=== PATIENT | male | born 1980 | race Caucasian/White ===

== ENCOUNTER 2018-07-05 10:09 | Observation (INO) | payer BC, OTHER ==
[2018-07-05] MEDS ORDERED: Ondansetron 4 MG/2 ML SDV ONE ×2 (10:38→10:48)
[2018-07-05] MEDS ORDERED: Ondansetron 4 MG/2 ML SDV IVPUSH ONE (10:44)
[2018-07-05] MEDS ORDERED: Sodium Chloride 0.9% 1,000 ML IV SCH (10:45)
--- NOTE | 2018-07-05 10:50 | EDM.PDOC ---
ED HPI GENERAL MEDICAL PROBLEM - General Stated Complaint: DIABETIC Time Seen by Provider: 07/05/18 10:25 Source of Information: Reports: Patient History Limitations: Reports: No Limitations - History of Present Illness INITIAL COMMENTS - FREE TEXT/NARRATIVE: Pt is type 1 diabetic, from around [facility], presents to the emergency room with c/o feeling tiered and sick. Apparently patient claims he started to vomiting after his last night supper, had several bouts of vomitus which contained fluids and undigested food particle. His last episode of vomitus was in the emergency room, clear fluid. Pt is wretching in the emergency room. Later on last night has had watery loose stools.No blood or mucus. His last episode of loose stools was prior to arrival. C/o weakness or sweaty. No fever or chills. No cough. No abdominal distension. Pt's morning blood sugar was 300, but in the emergency room his Blood sugar is 185mgs. No other complaints. Onset Date: 07/04/18 Onset Time: 20:00 Duration: Getting Worse, Intermittent Location: Reports: Abdomen Quality: Reports: Ache Severity: Moderate Improves with: Reports: None Worsens with: Reports: None Associated Symptoms: Reports: Loss of Appetite, Nausea/Vomiting, Weakness. Denies: Confusion, Chest Pain, Cough, Diaphoresis, Fever/Chills, Headaches, Rash , Seizure, Shortness of Breath, Syncope - Related Data Home Meds: Home Meds Insulin Aspart [NovoLOG] 5 - 8 units SQ ASDIRECTED 07/05/18 [History] Insulin Detemir [Levemir] 13 units SQ BID 07/05/18 [History] ED ROS GENERAL - Review of Systems Review Of Systems: See Below Constitutional: Denies: Fever, Chills, Malaise, Weakness HEENT: Denies: Rhinitis, Throat Pain, Throat Swelling Respiratory: Denies: Shortness of Breath, Cough, Sputum Cardiovascular: Denies: Chest Pain, Lightheadedness GI/Abdominal: Reports: Abdominal Pain, Diarrhea, Flatus, Nausea, Vomiting. Denies: Distension, Hematochezia, Melena, Mucous in Stool : Denies: Dysuria, Frequency Musculoskeletal: Denies: Joint Pain, Joint Swelling Skin: Denies: Bruising, Pruritis, Rash ED EXAM, GENERAL - Physical Exam Exam: See Below Exam Limited By: No Limitations General Appearance: Alert, WD/WN, No Apparent Distress, Other (Ill appearance. ALso tongue is dry, appears dehydrated) Eye Exam: Bilateral Eye: Abnormal EOM, Abnormal Pupil Ears: Normal External Exam, Normal Canal, Hearing Grossly Normal, Normal TMs Ear Exam: Bilateral Ear: Auricle Normal, Canal Normal, TM normal Nose: Normal Inspection, Normal Mucosa, No Blood Throat/Mouth: Normal Inspection, Normal Gums, Normal Voice, No Airway Compromise , Other (Tongue is dry oral mucosa is dry) Neck: Normal Inspection, Supple, Non-Tender, Full Range of Motion Respiratory/Chest: No Respiratory Distress, Lungs Clear, Normal Breath Sounds, No Accessory Muscle Use, Chest Non-Tender Cardiovascular: Normal Peripheral Pulses, Regular Rate, Rhythm, No Edema, No Gallop, No JVD, No Murmur, No Rub GI/Abdominal: Soft, No Distention, Tender (superficial tenderness all over. Mild epigastric tenderness.), Abnormal Bowel Sounds (hyperactive BS) Extremities: Normal Inspection, Normal Range of Motion, Non-Tender, Normal Capillary Refill, No Pedal Edema Neurological: Alert, Oriented, CN II-XII Intact Psychiatric: Normal Affect, Normal Mood Skin Exam: Warm, Intact Course - Vital Signs Text/Narrative:: Pt presents with nausea, vomiting, diarrhea since last night. Pt's vitals are stable. His clinical exam shows dry mucus membranes with hyperactive bowel sounds. HE does appear dehydrated. He did receive Iv Zofran 4mg and 1 litre normal saline bolus in the emergency room. His CBC shows mild elevation of white count at 14K. His CMP appears normal. His Lipase is negative. It does appear like acute viral gastroenteritis with with dehydration, from sudden loss of fluids. He has not given urine sample due to dehydration, will get one done once he urinates. I have discussed labs with patient, reassured that he has acute Gastroenteritis. Should resolve in next 24 hrs. Will keep in on Iv NS with KCL 20 meq at 150cc/hr. Control nasuea with zofran. Also as he has been empty stomach and has vague epigastric discomfort, will have him on protonix 40mg IV. Plan is to admit patient for observation. repeat CBC and BMP in am and followup . - Orders/Labs/Meds Orders: Active Orders 24 hr Category Date Time Status Sodium Chloride 0.9% [Normal Saline] 1,000 ml Med 07/05/18 10:45 Ordered IV ASDIRECTED Medication Orders Sodium Chloride (Normal Saline) 1,000 mls @ 999 mls/hr IV ASDIRECTED [facility] Last Admin: 07/05/18 10:49 Dose: 999 mls/hr Labs: Laboratory Tests 07/05/18 07/05/18 Range/Units 10:30 10:30 WBC 14.3 H (4.0-11.0) K/uL RBC 5.28 (4.50-6.50) M/uL Hgb 15.8 (13.0-18.0) g/dL Hct 45.2 (40.0-54.0) % MCV 86 (76-96) fL MCH 29.9 (27.0-32.0) pg MCHC 35.0 (31.0-35.0) g/dL RDW 12.9 (11.0-16.0) % Plt Count 248 (150-400) K/uL MPV 9.5 (6.0-10.0) fL Neut % (Auto) 89.2 H (45.0-70.0) % Lymph % (Auto) 7.0 L (20.0-40.0) % [place] % (Auto) 3.7 (3.0-10.0) % Eos % (Auto) 0.0 L (1.0-5.0) % Baso % (Auto) 0.1 (0.0-0.5) % Neut # (Auto) 12.75 H (2.00-7.50) K/uL Lymph # (Auto) 1.00 L (1.50-4.00) K/uL [place] # (Auto) 0.53 (0.20-0.80) K/uL Eos # (Auto) 0.00 L (0.04-0.40) K/uL Baso # (Auto) 0.02 (0.02-0.10) K/uL Sodium 144 (136-145) mmol/L Potassium 4.0 (3.5-5.1) mmol/L Chloride 103 (98-107) mmol/L Carbon Dioxide 26.4 (21.0-32.0) mmol/L Anion Gap 18.6 H (5.0-15.0) mmol/L BUN 24 (8-26) mg/dL Creatinine 0.80 (0.70-1.30) mg/dL Est Cr Clr Drug Dosing TNP Estimated GFR (MDRD) > 60 (>60) MLS/MIN BUN/Creatinine Ratio 30.0 H (6-25) Glucose 195 H (74-100) mg/dL Calcium 9.6 (8.5-10.1) mg/dL Total Bilirubin 0.7 (0.0-1.0) mg/dL AST 31 (15-37) U/L ALT 52 (12-78) U/L Alkaline Phosphatase 90 (46-116) U/L Total Protein 8.1 (6.4-8.2) g/dL Albumin 4.6 (3.4-5.0) g/dL Globulin 3.5 (2.2-4.2) g/dL Albumin/Globulin Ratio 1.3 (0.8-2.0) Lipase 59 L (73-393) U/L Meds: Medications Generic Name Dose Route Start Last Admin Trade Name Freq PRN Reason Stop Dose Admin Sodium Chloride 1,000 mls @ 999 mls/hr 07/05/18 10:45 07/05/18 10:49 Normal Saline IV 999 mls/hr ASDIRECTED [facility] Administration Discontinued Medications Generic Name Dose Route Start Last Admin Trade Name Freq PRN Reason Stop Dose Admin Ondansetron HCl Confirm 07/05/18 10:48 Zofran Administered 07/05/18 10:49 Dose 4 mg .ROUTE .STK-MED ONE Ondansetron HCl 4 mg 07/05/18 10:44 07/05/18 10:44 Zofran IVPUSH 07/05/18 10:45 4 mg ONETIME ONE Administration Departure - Departure Time of Disposition: 11:30 Disposition: Refer to Observation Condition: Fair Clinical Impression: Acute gastroenteritis - Discharge Information *PRESCRIPTION DRUG MONITORING PROGRAM REVIEWED*: Not Applicable *COPY OF PRESCRIPTION DRUG MONITORING REPORT IN PATIENT ZACK: Not Applicable Referrals: PCP,None [Primary Care Provider] - - Problem List & Annotations (1) Acute gastroenteritis SNOMED Code(s): 26942919 Code(s): K52.9 - NONINFECTIVE GASTROENTERITIS AND COLITIS, UNSPECIFIED Status: Acute Current Visit: Yes - Problem List Review Problem List Initiated/Reviewed/Updated: Yes - My Orders Last 24 Hours: My Active Orders 07/05/18 10:45 Sodium Chloride 0.9% [Normal Saline] 1,000 ml IV ASDIRECTED - Assessment/Plan Last 24 Hours: My Active Orders 07/05/18 10:45 Sodium Chloride 0.9% [Normal Saline] 1,000 ml IV ASDIRECTED Assessment:: Acute gastroenteritis with dehydration Plan: Pt presents with nausea, vomiting, diarrhea since last night. Pt's vitals are stable. His clinical exam shows dry mucus membranes with hyperactive bowel sounds. HE does appear dehydrated. He did receive Iv Zofran 4mg and 1 litre normal saline bolus in the emergency room. His CBC shows mild elevation of white count at 14K. His CMP appears normal. His Lipase is negative. It does appear like acute viral gastroenteritis with with dehydration, from sudden loss of fluids. He has not given urine sample due to dehydration, will get one done once he urinates. I have discussed labs with patient, reassured that he has acute Gastroenteritis. Should resolve in next 24 hrs. Will keep in on Iv NS with KCL 20 meq at 150cc/hr. Control nasuea with zofran. Also as he has been empty stomach and has vague epigastric discomfort, will have him on protonix 40mg IV. Plan is to admit patient for observation. repeat CBC and BMP in am and followup .
[2018-07-05] MEDS ORDERED: Sodium Chloride 0.9% 10 ML Syringe FLUSH PRN (11:24)
[2018-07-05] MEDS ORDERED: Pantoprazole 40 MG in Sodium Chloride 0.9% 100 ML IV SCH (11:30)
[2018-07-05] MEDS ORDERED: NS + KCl 20mEq/L 1,000 ML ONE (11:50)
[2018-07-05] MEDS: NS + KCl 20mEq/L 1,000 ML IV SCH ×2 (11:55→20:24)
[2018-07-05] MEDS: Ondansetron 4 MG/2 ML SDV IVPUSH SCH ×2 (13:29→20:20)
[2018-07-05] MEDS ORDERED: Metoclopramide 10 MG/2 ML SDV ONE (14:56)
[2018-07-05] MEDS ORDERED: Metoclopramide 10 MG/2 ML SDV IV PRN (14:57)
[2018-07-06] MEDS: Ondansetron 4 MG/2 ML SDV IVPUSH SCH ×3 (03:19→20:15)
[2018-07-06] MEDS: NS + KCl 20mEq/L 1,000 ML IV SCH (03:19)
[2018-07-06] MEDS ORDERED: cefTRIAXone 1 GM Vial ONE (10:00)
[2018-07-06] MEDS ORDERED: Pantoprazole 40 MG Vial ONE (10:00)
[2018-07-06] MEDS ORDERED: Ondansetron 4 MG/2 ML SDV ONE (10:00)
[2018-07-06] MEDS ORDERED: Insulin Detemir 100 Units/ML 3 ML Pen ONE (10:00)
[2018-07-06] MEDS ORDERED: Sodium Chloride 0.9% 1,000 ML IV SCH (10:15)
[2018-07-06] MEDS ORDERED: cefTRIAXone 1 GM in Sodium Chloride 0.9% 50 ML IV ONE (11:00)
--- NOTE | 2018-07-06 11:16 | PCM.PN ---
- General Info Date of Service: 07/06/18 Subjective Update: Pt claims he feels better, but tired. Has not had any episodes of vomiting over night, but has had one small loose stool around 2 am. No abdominal pain. No nausea or vomiting. No fever or chills.Was kept NPO over night, Pt claims he has been feeling hungry and would like to eat some food. No fever of chills. Functional Status: Reports: Pain Controlled, Tolerating Diet, Ambulating, Urinating - Review of Systems General: Reports: Weakness, Fatigue. Denies: Fever HEENT: Denies: Headaches, Sinus Congestion, Rhinitis Pulmonary: Denies: Shortness of Breath, Pleuritic Chest Pain, Cough, Sputum, Hemoptysis Cardiovascular: Denies: Chest Pain, Lightheadedness Gastrointestinal: Reports: Diarrhea, Flatus. Denies: Abdominal Pain, Nausea, Vomiting Genitourinary: Denies: Dysuria, Frequency Musculoskeletal: Denies: Joint Pain, Joint Swelling Skin: Denies: Bruising, Pruritis, Rash Neurological: Denies: Confusion, Dizziness, Headache, Numbness, Tingling Psychiatric: Denies: Confusion - Patient Data Vitals - Most Recent: Last Vital Signs Temp 98.4 F 07/06/18 07:00 Pulse 127 H 07/06/18 07:00 Resp 17 07/06/18 07:00 BP 127/67 07/06/18 07:00 Pulse Ox 96 07/06/18 07:00 Weight - Most Recent: 68.492 kg I&O - Last 24 Hours: Intake & Output 07/05/18 07/06/18 07/06/18 22:59 06:59 14:59 Intake Total 2681 Balance 2681 Lab Results Last 24 Hours: Laboratory Results - last 24 hr 07/05/18 07/05/18 07/05/18 Range/Units 17:10 17:35 19:19 WBC (4.0-11.0) K/uL RBC (4.50-6.50) M/uL Hgb (13.0-18.0) g/dL Hct (40.0-54.0) % MCV (76-96) fL MCH (27.0-32.0) pg MCHC (31.0-35.0) g/dL RDW (11.0-16.0) % Plt Count (150-400) K/uL MPV (6.0-10.0) fL Sodium (136-145) mmol/L Potassium (3.5-5.1) mmol/L Chloride (98-107) mmol/L Carbon Dioxide (21.0-32.0) mmol/L Anion Gap (5.0-15.0) mmol/L BUN (8-26) mg/dL Creatinine (0.70-1.30) mg/dL Est Cr Clr Drug Dosing mL/min Estimated GFR (MDRD) (>60) MLS/MIN BUN/Creatinine Ratio (6-25) Glucose (74-100) mg/dL POC Glucose 210 H 212 H (74-110) mg/dL Lactic Acid (0.90-1.70) mmol/L Calcium (8.5-10.1) mg/dL Urine Color Yellow Urine Appearance Clear (CLEAR) Urine pH 7.0 (5.0-8.0) Ur Specific [place] 1.020 (1.003-1.030) Urine Protein Negative (NEGATIVE) mg/dL Urine Glucose (UA) 500 H (NEGATIVE) mg/dL Urine Ketones 80 H (NEGATIVE) mg/dL Urine Occult Blood Negative (NEGATIVE) Urine Nitrite Negative (NEGATIVE) Urine Bilirubin Negative (NEGATIVE) Urine Urobilinogen 0.2 (0.2-1.0) E.U./dL Ur Leukocyte Esterase Negative (NEGATIVE) Urine RBC Not seen /HPF Urine WBC 0-5 H /HPF Ur Squamous Epith Cells Few /HPF 07/06/18 07/06/18 07/06/18 Range/Units 09:20 09:20 10:06 WBC 24.3 H* D (4.0-11.0) K/uL RBC 4.93 (4.50-6.50) M/uL Hgb 14.6 (13.0-18.0) g/dL Hct 44.6 (40.0-54.0) % MCV 91 (76-96) fL MCH 29.6 (27.0-32.0) pg MCHC 32.7 (31.0-35.0) g/dL RDW 14.2 (11.0-16.0) % Plt Count 261 (150-400) K/uL MPV 9.5 (6.0-10.0) fL Sodium 144 (136-145) mmol/L Potassium 5.2 H D (3.5-5.1) mmol/L Chloride 105 (98-107) mmol/L Carbon Dioxide 11.2 L* D (21.0-32.0) mmol/L Anion Gap 33.0 H (5.0-15.0) mmol/L BUN 33 H D (8-26) mg/dL Creatinine 1.38 H D (0.70-1.30) mg/dL Est Cr Clr Drug Dosing 71.69 mL/min Estimated GFR (MDRD) 58 L (>60) MLS/MIN BUN/Creatinine Ratio 23.9 (6-25) Glucose 358 H D (74-100) mg/dL POC Glucose (74-110) mg/dL Lactic Acid 2.84 H (0.90-1.70) mmol/L Calcium 9.1 (8.5-10.1) mg/dL Urine Color Urine Appearance (CLEAR) Urine pH (5.0-8.0) Ur Specific [place] (1.003-1.030) Urine Protein (NEGATIVE) mg/dL Urine Glucose (UA) (NEGATIVE) mg/dL Urine Ketones (NEGATIVE) mg/dL Urine Occult Blood (NEGATIVE) Urine Nitrite (NEGATIVE) Urine Bilirubin (NEGATIVE) Urine Urobilinogen (0.2-1.0) E.U./dL Ur Leukocyte Esterase (NEGATIVE) Urine RBC /HPF Urine WBC /HPF Ur Squamous Epith Cells /HPF Med Orders - Current: Current Medications Sodium Chloride (Normal Saline) 1,000 mls @ 999 mls/hr IV ASDIRECTED [facility] Last Admin: 07/05/18 10:49 Dose: 999 mls/hr Pantoprazole Sodium 40 mg/ (Sodium Chloride) 100 mls @ 200 mls/hr IV .BOLUS [facility] Last Admin: 07/05/18 12:34 Dose: 200 mls/hr Ceftriaxone Sodium 1 gm/ (Sodium Chloride) 50 mls @ 100 mls/hr IV ONETIME ONE Stop: 07/06/18 11:29 Last Admin: 07/06/18 10:59 Dose: 100 mls/hr Sodium Chloride (Normal Saline) 1,000 mls @ 75 mls/hr IV ASDIRECTED [facility] Last Admin: 07/06/18 10:59 Dose: 75 mls/hr Insulin Detemir (Levemir) 13 unit SUBCUT BID [facility] Metoclopramide HCl (Reglan) 10 mg IV Q8H PRN PRN Reason: Nausea Ondansetron HCl (Zofran) 4 mg IVPUSH Q8H [facility] Last Admin: 07/06/18 10:58 Dose: 4 mg Sodium Chloride (Saline Flush) 10 ml FLUSH ASDIRECTED PRN PRN Reason: Keep Vein Open Discontinued Medications Potassium Chloride/Sodium Chloride (Normal Saline With 20 Meq Kcl) 1,000 mls @ 150 mls/hr IV ASDIRECTED [facility] Last Admin: 07/06/18 03:19 Dose: 150 mls/hr Potassium Chloride/Sodium Chloride (Normal Saline With 20 Meq Kcl) Confirm Administered Dose 1,000 mls @ as directed .ROUTE .[employer] ONE Stop: 07/05/18 11:51 Last Admin: 07/05/18 12:30 Dose: Not Given Metoclopramide HCl (Reglan) Confirm Administered Dose 10 mg .ROUTE .STRover-MED ONE Stop: 07/05/18 14:57 Last Admin: 07/05/18 15:06 Dose: 10 mg Ondansetron HCl (Zofran) Confirm Administered Dose 4 mg .ROUTE .[employer]-MED ONE Stop: 07/05/18 10:49 Last Admin: 07/05/18 13:31 Dose: Not Given Ondansetron HCl (Zofran) 4 mg IVPUSH ONETIME ONE Stop: 07/05/18 10:45 Last Admin: 07/05/18 10:44 Dose: 4 mg - Exam General: Alert, Oriented, Cooperative, Other (topngiue and oral mucosa is moist. Hydration appears appropriate.) HEENT: Pupils Equal, Pupils Reactive, EOMI, Mucous Membr. Moist/[place] Neck: Supple Lungs: Clear to Auscultation, Normal Respiratory Effort Cardiovascular: Regular Rate, Regular Rhythm GI/Abdominal Exam: Normal Bowel Sounds, Soft, Non-Tender, No Organomegaly, No Distention, No Abnormal Bruit, No Mass, Pelvis Stable Back Exam: Normal Inspection, Full Range of Motion Extremities: Normal Inspection, Normal Range of Motion, Non-Tender, No Pedal Edema, Normal Capillary Refill Skin: Warm, Intact - Problem List & Annotations (1) Acute gastroenteritis SNOMED Code(s): 50016523 Code(s): K52.9 - NONINFECTIVE GASTROENTERITIS AND COLITIS, UNSPECIFIED Status: Acute Current Visit: Yes (2) Leucocytosis SNOMED Code(s): 448031230, 636454790 Code(s): D72.829 - ELEVATED WHITE BLOOD CELL COUNT, UNSPECIFIED Status: Acute Current Visit: Yes - Problem List Review Problem List Initiated/Reviewed/Updated: Yes - My Orders Last 24 Hours: My Active Orders 07/05/18 10:45 Sodium Chloride 0.9% [Normal Saline] 1,000 ml IV ASDIRECTED 07/05/18 11:24 Patient Status [ADT] Routine Bedrest Bathroom Privileges [RC] ASDIRECTED Oxygen Therapy [RC] PRN VTE/DVT Education [RC] Per Unit Routine Vital Signs [RC] Q4H Sodium Chloride 0.9% [Saline Flush] 10 ml FLUSH ASDIRECTED PRN Peripheral IV Insertion Adult [OM.PC] Routine Resuscitation Status Routine 07/05/18 11:25 Intake and Output [RC] 06,18 07/05/18 11:30 Ondansetron [Zofran] 4 mg IVPUSH Q8H Pantoprazole [ProTONIX IV] 40 mg Sodium Chloride 0.9% [Normal Saline] 100 ml IV .BOLUS 07/05/18 14:57 Metoclopramide [Reglan] 10 mg IV Q8H PRN 07/05/18 Lunch Nothing per Oral Now Diet [DIET] 07/06/18 10:06 CULTURE BLOOD [BC] Routine 07/06/18 10:07 Abdomen w Cont [CT] Routine 07/06/18 10:15 Sodium Chloride 0.9% [Normal Saline] 1,000 ml IV ASDIRECTED 07/06/18 10:30 CULTURE BLOOD [BC] Routine 07/06/18 10:45 Abdomen Pelvis wo Cont [CT] Routine 07/06/18 11:00 cefTRIAXone [Rocephin] 1 gm Sodium Chloride 0.9% [Normal Saline] 50 ml IV ONETIME 07/06/18 11:15 Insulin Detemir [Levemir] 13 unit SUBCUT BID 07/06/18 Dinner Clear Liquid Diet [DIET] - Assessment Assessment:: Acute infective gastroenteritis with leucocytosis - Plan Plan:: Patient claims he feels better.Vitals are stable and his clinical exam is normal. He was given ice chips to start with and has tolerated it well. No nausea or vomiting. His morning lab work showed elevated white count of 24K. His BMP shows normal sodium, potassium of 5.2. His anion gap is increased to 33. Creat is 1.3 and BUN is up from 24 to 33. Patient did have Lactic acid done, which dose shows mild elevation. 3.5. Patient did have 2 sets of blood culture drawn and did receive rocephin 1 gm IV. Will continue IV fluids NS at 75cc today. He is asymptomatic and stable tolerating oral liquids, will advance diet to ADA clear liquid diet. His CT abdomen and pelvis is negative to any acute infection or obstruction. On further questioning patient, he has been drinking water form the tap since he has been here. His last bowel movement was at 2 am, will get stool culture with next stool to make sure he does not have infective gastroenteritis. Will continue to monitor patient. Will have morning CBC and BMP.
[2018-07-06] MEDS: Insulin Detemir 100 Units/ML 3 ML Pen SUBCUT SCH ×2 (11:26→20:18)
[2018-07-06] MEDS ORDERED: Insulin Aspart 100 Units/ML 3 ML Pen SUBCUT ONE (15:08)
[2018-07-06] MEDS ORDERED: INSULIN ASPART 100 UNIT/ML SUBCUT ONE (15:30)
[2018-07-06] MEDS ORDERED: Acetaminophen 325 MG Tab PO PRN (19:10)
[2018-07-06] MEDS: Pantoprazole 40 MG Vial IVPUSH SCH (20:25)
[2018-07-06] MEDS: cefTRIAXone 1 GM in Sodium Chloride 0.9% 50 ML IV SCH (22:06)
[2018-07-07] MEDS: Insulin Detemir 100 Units/ML 3 ML Pen SUBCUT SCH (08:00)
[2018-07-07] MEDS: Pantoprazole 40 MG Vial IVPUSH SCH (08:00)
[2018-07-07] MEDS ORDERED: Ondansetron 4 MG Tab.DIS ONE ×2 (08:00→13:18)
[2018-07-07] MEDS: cefTRIAXone 1 GM in Sodium Chloride 0.9% 50 ML IV SCH (10:00)
[2018-07-07] MEDS ORDERED: cefTRIAXone 1 GM Vial ONE (10:26)
--- NOTE | 2018-07-07 11:43 | CT ---
DATE OF SERVICE: 07/06/18 CLINICAL DATA: diarrhea with leucocytosis UNENHANCED ABDOMEN AND PELVIC CT: Multislice acquisition through the abdomen and pelvis without IV or oral contrast was performed. No priors. Motion artifact degrades image quality. The lung bases are clear. The heart size is normal. There is diffuse fatty infiltration of the liver. No focal hepatic lesions. The gallbladder appears normal. The spleen appears normal. The pancreas appears grossly normal. The right and left adrenals appear normal. The right and left kidneys appear normal. No nephrocalcinosis or nephrolithiasis. No hydronephrosis or hydroureter. The bladder is fluid filled. There is diffuse bladder wall thickening. Cystitis should be considered. The appendix is not dilated. No evidence of appendicitis. No free air. There is a small amount of free fluid noted within the pelvis. No dilated loops of bowel. No adenopathy. No aortic aneurysm. The stomach is fluid filled and moderately distended. A gastric outlet obstruction cannot be excluded. [id number] [facility]
--- NOTE | 2018-07-07 11:46 | PCM.DCSUM1 ---
Discharge Summary - Hospital Course Free Text/Narrative:: Pt is a 38 year old IDDM presented t emergency room with over night nausea and vomiting. Pt's clinical exam did show dry tongue and oral mucosa consistent with dehydration. His initial lab work in the emergency room showed, white count of 14.3K, with normal renal and kidney function.Initial blood sugar was 185mgs. Pt was constantly wretching and vomiting and was not able to keep fluids. Hence he was admitted for observation and IV hydration and control his vomiting. Pt did receive I litre of normal saline bolus followed by NS with 20 meq of potassium at 150cc/hr. Zofran Iv for nausea. Day one, patient was feeling some improvement in his nausea. Also had one episode of loose stool. His clinical exam was normal, with good bowel sounds.His Labs work showed elevated white count of 24K with 87% neutrophils.His creat was up 1.38 and BUN was 34.I did get lactic acid done which was mildly elevated. Blood cultures were drawn. His blood sugar di go up into 400s and his levemir was started.Pt was started on Rocephin 1gm BID, considering this to be infective GE. Also Stool culture ordered. Also patient was clinically feeling fine and asymptomatic. He was started on clear liquids. Pt tolerated diet well and was progressed. He did spike a temp of 101F, which resolved over night. Day 2, patient claims he is feeling well. Has not had any nausea or vomiting or diarrhea. Has been tolerating oral diet well. Diet advance to regular ADA diet. Pt's white count is down form 24K down to 16K. His BMP is normal and creat is down to 1 from 1.38. Pt is clinically feeling better. Has been asymptomatic for more than 24 hrs. Will plan discharge today. started him on Ceftin 500mg twice daily. Continue home meds.Advised to followup with his primary care provider next week. Brief History: Presented to Emergency room on 07/05/18 with nausea , vomtng and diarrhea. Kidly see H&P for details. Diagnosis: Stroke: No - Discharge Data Discharge Date: 07/07/18 Discharge Disposition: Home, Self-Care 01 Condition: Good - Discharge Diagnosis/Problem(s) (1) Acute gastroenteritis SNOMED Code(s): 49995958 ICD Code: K52.9 - NONINFECTIVE GASTROENTERITIS AND COLITIS, UNSPECIFIED Status: Acute Current Visit: Yes (2) Leucocytosis SNOMED Code(s): 391191041, 166704418 ICD Code: D72.829 - ELEVATED WHITE BLOOD CELL COUNT, UNSPECIFIED Status: Acute Current Visit: Yes - Patient Instructions Diet: Diabetic Diet Fluid Restriction: 1500 mL Activity: As Tolerated Driving: May Drive Today Showering/Bathing: May Shower - Discharge Plan *PRESCRIPTION DRUG MONITORING PROGRAM REVIEWED*: Not Applicable *COPY OF PRESCRIPTION DRUG MONITORING REPORT IN PATIENT ZACK: Not Applicable Home Medications: Home Meds Insulin Aspart [NovoLOG] 5 - 8 units SQ ASDIRECTED 07/05/18 [History] Insulin Detemir [Levemir] 13 units SQ BID 07/05/18 [History] Referrals: PCP,None [Primary Care Provider] - - Discharge Summary/Plan Comment DC Time >30 min.: Yes Discharge Summary/Plan Comment: Will plan discharge today. Started him on oral Ceftin 500mg twice daily. Continue home meds. Advised to followup with his primary care provider next week. - General Info Date of Service: 07/07/18 Functional Status: Reports: Pain Controlled, Tolerating Diet, Ambulating, Urinating - Review of Systems General: Denies: Fever, Weakness, Fatigue HEENT: Denies: Sinus Congestion, Sore Throat, Rhinitis Pulmonary: Denies: Cough, Sputum Cardiovascular: Denies: Chest Pain, Lightheadedness Gastrointestinal: Denies: Abdominal Pain, Diarrhea, Nausea, Vomiting Genitourinary: Denies: Dysuria, Frequency Skin: Denies: Bruising, Pruritis, Rash Neurological: Denies: Confusion, Dizziness, Headache, Numbness, Tingling - Patient Data Vitals - Most Recent: Last Vital Signs Temp 101.2 F H 07/06/18 18:55 Pulse 119 H 07/06/18 18:53 Resp 20 07/06/18 18:53 BP 139/76 07/06/18 18:53 Pulse Ox 99 07/06/18 18:53 Weight - Most Recent: 68.492 kg I&O - Last 24 hours: Intake & Output 07/06/18 07/07/18 07/07/18 22:59 06:59 14:59 Intake Total 2314 Balance 2314 Lab Results - Last 24 hrs: Laboratory Results - last 24 hr 07/06/18 07/06/18 07/06/18 Range/Units 14:03 17:37 18:25 WBC 21.6 H* (4.0-11.0) K/uL RBC 4.90 (4.50-6.50) M/uL Hgb 14.4 (13.0-18.0) g/dL Hct 43.8 (40.0-54.0) % MCV 89 (76-96) fL MCH 29.4 (27.0-32.0) pg MCHC 32.9 (31.0-35.0) g/dL RDW 14.2 (11.0-16.0) % Plt Count 237 (150-400) K/uL MPV 9.1 (6.0-10.0) fL Neut % (Auto) 83.2 H (45.0-70.0) % Lymph % (Auto) 8.7 L (20.0-40.0) % Edmunds % (Auto) 8.1 (3.0-10.0) % Eos % (Auto) 0.0 L (1.0-5.0) % Baso % (Auto) 0.0 (0.0-0.5) % Neut # (Auto) 17.92 H (2.00-7.50) K/uL Lymph # (Auto) 1.88 (1.50-4.00) K/uL Edmunds # (Auto) 1.74 H (0.20-0.80) K/uL Eos # (Auto) 0.00 L (0.04-0.40) K/uL Baso # (Auto) 0.01 L (0.02-0.10) K/uL Sodium (136-145) mmol/L Potassium (3.5-5.1) mmol/L Chloride (98-107) mmol/L Carbon Dioxide (21.0-32.0) mmol/L Anion Gap (5.0-15.0) mmol/L BUN (8-26) mg/dL Creatinine (0.70-1.30) mg/dL Est Cr Clr Drug Dosing mL/min Estimated GFR (MDRD) (>60) MLS/MIN BUN/Creatinine Ratio (6-25) Glucose (74-100) mg/dL POC Glucose 468 H* 325 H (74-110) mg/dL Calcium (8.5-10.1) mg/dL 07/06/18 07/07/18 07/07/18 Range/Units 21:04 08:00 08:00 WBC 16.5 H D (4.0-11.0) K/uL RBC 4.36 L (4.50-6.50) M/uL Hgb 13.0 (13.0-18.0) g/dL Hct 38.2 L (40.0-54.0) % MCV 88 (76-96) fL MCH 29.8 (27.0-32.0) pg MCHC 34.0 (31.0-35.0) g/dL RDW 42.8 H (11.0-16.0) % Plt Count 206 (150-400) K/uL MPV 8.9 (6.0-10.0) fL Neut % (Auto) 85.3 H (45.0-70.0) % Lymph % (Auto) 7.5 L (20.0-40.0) % Edmunds % (Auto) 7.0 (3.0-10.0) % Eos % (Auto) 0.1 L (1.0-5.0) % Baso % (Auto) 0.1 (0.0-0.5) % Neut # (Auto) 14.08 H (2.00-7.50) K/uL Lymph # (Auto) 1.23 L (1.50-4.00) K/uL Edmunds # (Auto) 1.15 H (0.20-0.80) K/uL Eos # (Auto) 0.01 L (0.04-0.40) K/uL Baso # (Auto) 0.01 L (0.02-0.10) K/uL Sodium 140 (136-145) mmol/L Potassium 4.2 (3.5-5.1) mmol/L Chloride 105 (98-107) mmol/L Carbon Dioxide 22.6 D (21.0-32.0) mmol/L Anion Gap 16.6 H (5.0-15.0) mmol/L BUN 24 D (8-26) mg/dL Creatinine 1.01 D (0.70-1.30) mg/dL Est Cr Clr Drug Dosing 97.95 mL/min Estimated GFR (MDRD) > 60 (>60) MLS/MIN BUN/Creatinine Ratio 23.8 (6-25) Glucose 159 H D (74-100) mg/dL POC Glucose 292 H (74-110) mg/dL Calcium 8.0 L (8.5-10.1) mg/dL MARIBEL Results - Last 24 hrs: Microbiology 07/06/18 10:30 Aerobic Blood Culture - Preliminary Blood NO GROWTH AFTER 1 DAY Anaerobic Blood Culture - Preliminary NO GROWTH AFTER 1 DAY Med Orders - Current: Current Medications Acetaminophen (Tylenol) 650 mg PO Q6H PRN PRN Reason: Fever Sodium Chloride (Normal Saline) 1,000 mls @ 75 mls/hr IV ASDIRECTED [facility] Last Admin: 07/06/18 10:59 Dose: 75 mls/hr Ceftriaxone Sodium 1 gm/ (Sodium Chloride) 50 mls @ 100 mls/hr IV Q12H [facility] Last Admin: 07/06/18 22:06 Dose: 100 mls/hr Insulin Detemir (Levemir) 13 unit SUBCUT BID [facility] Last Admin: 07/06/18 20:18 Dose: 13 unit Metoclopramide HCl (Reglan) 10 mg IV Q8H PRN PRN Reason: Nausea Ondansetron HCl (Zofran) 4 mg IVPUSH Q8H [facility] Last Admin: 07/06/18 20:15 Dose: 4 mg Pantoprazole Sodium (Protonix Iv) 40 mg IVPUSH DAILY [facility] Last Admin: 07/06/18 20:25 Dose: 40 mg Sodium Chloride (Saline Flush) 10 ml FLUSH ASDIRECTED PRN PRN Reason: Keep Vein Open Discontinued Medications Sodium Chloride (Normal Saline) 1,000 mls @ 999 mls/hr IV ASDIRECTED [facility] Last Admin: 07/05/18 10:49 Dose: 999 mls/hr Pantoprazole Sodium 40 mg/ (Sodium Chloride) 100 mls @ 200 mls/hr IV .BOLUS [facility] Last Admin: 07/05/18 12:34 Dose: 200 mls/hr Potassium Chloride/Sodium Chloride (Normal Saline With 20 Meq Kcl) 1,000 mls @ 150 mls/hr IV ASDIRECTED [facility] Last Admin: 07/06/18 03:19 Dose: 150 mls/hr Potassium Chloride/Sodium Chloride (Normal Saline With 20 Meq Kcl) Confirm Administered Dose 1,000 mls @ as directed .ROUTE .STK-MED ONE Stop: 07/05/18 11:51 Last Admin: 07/05/18 12:30 Dose: Not Given Ceftriaxone Sodium 1 gm/ (Sodium Chloride) 50 mls @ 100 mls/hr IV ONETIME ONE Stop: 07/06/18 11:29 Last Admin: 07/06/18 10:59 Dose: 100 mls/hr Insulin Aspart (Novolog) 6 unit SUBCUT ONETIME ONE Stop: 07/06/18 15:31 Last Admin: 07/06/18 15:19 Dose: 6 unit Metoclopramide HCl (Reglan) Confirm Administered Dose 10 mg .ROUTE .STK-MED ONE Stop: 07/05/18 14:57 Last Admin: 07/05/18 15:06 Dose: 10 mg Ondansetron HCl (Zofran) Confirm Administered Dose 4 mg .ROUTE .STK-MED ONE Stop: 07/05/18 10:49 Last Admin: 07/05/18 13:31 Dose: Not Given Ondansetron HCl (Zofran) 4 mg IVPUSH ONETIME ONE Stop: 07/05/18 10:45 Last Admin: 07/05/18 10:44 Dose: 4 mg - Exam General: Reports: Alert, Oriented HEENT: Reports: Pupils Equal, Pupils Reactive, EOMI, Mucous Membr. Moist/[place] Neck: Reports: Supple Lungs: Reports: Clear to Auscultation, Normal Respiratory Effort Cardiovascular: Reports: Regular Rate, Regular Rhythm GI/Abdominal Exam: Normal Bowel Sounds, Soft, Non-Tender, No Organomegaly, No Distention, No Abnormal Bruit, No Mass, Pelvis Stable Extremities: Normal Inspection, Normal Range of Motion, Non-Tender, No Pedal Edema, Normal Capillary Refill Skin: Reports: Warm, Intact Neurological: Reports: No New Focal Deficit
[2018-07-07] MEDS: Ondansetron 4 MG/2 ML SDV IVPUSH SCH ×2 (12:29→12:30)
== END 2018-07-07 14:00 | disposition home or self-care (01) ==
LOC: LB.ED 10:09 → LB.MS 11:19 → UNDOADMOB 11:19 → LB.MS 11:24
PROVIDERS: ADMIT Family Medicine; ATTEND Family Medicine
DX: A09 Infectious gastroenteritis and colitis, unspecified (principal); E86.0 Dehydration; E10.9 Type 1 diabetes mellitus without complications; Z79.4 Long term (current) use of insulin
CPT/HCPCS: 36415; 74176; 80048; 80053; 81001; 82962; 83605; 83690; 85025; 85027; 87040; A9270; C9113; J0696; J1815; J2405; J2765; J3480; J7030; J7050